=== PATIENT | female | born 1960 | race African-American/Black ===

== ENCOUNTER 2017-04-10 21:47 | Emergency (ER) | payer MEDICAID, OTHER ==
[~2017-04-10] VITALS: Ht 160 cm; Wt 84.0 kg
[2017-04-10] MEDS ORDERED: SODIUM CHLORIDE 0.9% 1,000 ML IV ONE (23:16)
[2017-04-10] MEDS ORDERED: ONDANSETRON HCL 4MG/2ML VIAL IV STA (23:16)
[2017-04-10 23:50] LABS: BASOPHILS % 0.1 % (0.0-2.0); CHLORIDE 105 mEq/L (98-107); EOSINOPHILS % 0.4 % (0.0-5.0); HEMOGLOBIN. 12.4 g/dL (12.0-16.0); LYMPHOCYTES % 7.1 % (20.0-50.0); MEAN CORPUSCULAR HEMOGLOBIN 28.7 pg (28.0-32.0); MEAN CORPUSCULAR VOLUME 88.1 fL (81.0-99.0); MEAN PLATELET VOLUME 7.9 fl (7.4-10.4); NEUTROPHILS % 87.4 % (40.0-76.0); PLATELET 207 x1000/uL (130-400); RED BLOOD CELL COUNT 4.31 mill/uL (4.2-5.4); RED CELL DISTRIBUTION WIDTH 13.5 % (11.6-14.6)
[2017-04-10 23:54] LABS: INR 1.1; PROTHROMBIN TIME 11.1 sec (9.4-11.6)
[2017-04-10 23:58] LABS: CARBON DIOXIDE 28 mEq/L (21-32)
[2017-04-11 00:44] LABS: CLARITY URINE CLEAR (CLEAR); COLOR URINE YELLOW (YELLOW); KETONES URINE NEGATIVE (NEGATIVE); LEUKOCYTE ESTERASE URINE NEGATIVE (NEGATIVE); NITRITE URINE NEGATIVE (NEGATIVE); OCCULT BLOOD URINE NEGATIVE (NEGATIVE); PROTEIN URINE NEGATIVE (NEGATIVE); SPECIFIC GRAVITY URINE 1.021 (1.005-1.030)
[2017-04-11] MEDS ORDERED: ONDANSETRON HCL 4MG/2ML VIAL IV NR (02:00)
[2017-04-11] MEDS ORDERED: KETOROLAC 30MG/ML VIAL IV NR (02:00)
[2017-04-11 02:02] LABS: TROPONIN I < 0.02 ng/mL (0.00-0.04)
[2017-04-11] MEDS ORDERED: ACETAMINOPHEN 325MG TABLET PO ONE (04:30)
[2017-04-11 04:50] VITALS: BP 124/82
== END 2017-04-11 04:52 | disposition home or self-care (01) ==
LOC: ER 22:34
DX: R11.10 Vomiting, unspecified (principal); R53.1 Weakness; R94.6 Abnormal results of thyroid function studies
CPT/HCPCS: 36415; 71010; 80053; 81003; 81025; 83880; 84443; 84484; 85025; 85610; 93005; 96361; 96374; 96375; 96376; 99285; J1885; J2405; J7030; Z7610